=== PATIENT | male | born 1960 ===

== ENCOUNTER 2020-12-05 07:00 | Inpatient (IN) | payer OTHER ==
[~2020-12-05] VITALS: Ht 177.8 cm; Wt 92.5 kg
[2020-12-05] MEDS ORDERED: ZESTRIL5 MG PO (08:27)
[2020-12-05] MEDS ORDERED: HORIZANT600 MG PO (08:27)
[2020-12-05] MEDS ORDERED: FORTAMET500 MG PO (08:27)
[2020-12-05] MEDS ORDERED: [UNRECOGNIZED DRUG - OTHER] PO (08:28)
[2020-12-12] MEDS ORDERED: PRILOSEC OTC20 MG (08:07)
[2020-12-12] MEDS ORDERED: OMEPRAZOLE40 MG PO (08:08)
[2020-12-14] MEDS ORDERED: DUI500 PO (10:30)
[2020-12-14] MEDS ORDERED: ELIQUIS2.5 MG PO (10:30)
[2020-12-14] MEDS ORDERED: PERCOCET 5-3251 EACH PO (10:30)
== END 2020-12-14 17:50 | DRG 470 ==
LOC: O/R 12-12 06:00 → SURH 12-12 07:00
PROVIDERS: ADMIT Orthopaedic Surgery; ATTEND Orthopaedic Surgery
PROC: 0SRD0J9 Replacement of Left Knee Joint with Synthetic Substitute, Cemented, Open Approach (ICD-10-PCS; principal; 2020-12-12 13:00)
DX: M17.12 Unilateral primary osteoarthritis, left knee (principal); D62 Acute posthemorrhagic anemia; I10 Essential (primary) hypertension; E11.9 Type 2 diabetes mellitus without complications; Z79.84 Long term (current) use of oral hypoglycemic drugs

== ENCOUNTER 2025-01-20 06:20 | Day surgery (SDC) | payer OTHER ==
[~2025-01-20 06:20] MED LIST: DUI500 PO; ELIQUIS2.5 MG PO; FORTAMET500 MG PO; HORIZANT600 MG PO; OMEPRAZOLE40 MG PO; PERCOCET 5-3251 EACH PO; PRILOSEC OTC20 MG; ZESTRIL5 MG PO; [UNRECOGNIZED DRUG - OTHER] PO
[2025-01-20] MEDS ORDERED: DIPHENHYDRAMINE HCL 50 MG/ML VIAL 1ML IV ONE (09:15)
[2025-01-20] MEDS ORDERED: MIDAZOLAM HCL 2 MG/2 ML VIAL IV ONE (09:15)
[2025-01-20] MEDS ORDERED: fentaNYL CITRATE 50 MCG/ML AMPUL IV PUSH ONE (09:15)
== END 2025-01-20 11:30 | disposition home or self-care (01) ==
LOC: AMB-ENDOS 06:20
PROVIDERS: ATTEND Internal Medicine
DX: R13.19 Other dysphagia (principal); K22.2 Esophageal obstruction; K20.80 Other esophagitis without bleeding; K22.70 Barrett's esophagus without dysplasia; K44.9 Diaphragmatic hernia without obstruction or gangrene